=== PATIENT | female | born 1945 | race Caucasian/White ===

== ENCOUNTER 2017-08-12 10:28 | Outpatient (CLI) | payer OTHER ==
[~2017-08-12 10:28] MED LIST: AMOX1TAB12 PO; BACTROBAN OINT22 GM TP; GLIPIZIDE5 MG PO; GLUMETZA1000 MG PO; KETO10TA2 PO; ONGLYZA5 MG PO; SYNTHROID100 MCG PO; SYSTANE GEL EYE10 ML OP; ZOCOR20 MG PO
== END 2017-08-12 10:38 | disposition home or self-care (01) ==
LOC: NUCLEAR 10:28
DX: M81.0 Age-related osteoporosis without current pathological fracture (principal)

== ENCOUNTER 2018-07-15 11:56 | Outpatient (CLI) | payer OTHER | END 2018-07-15 12:08 | disposition home or self-care (01) | LOC: RAD 11:56 | DX: Z01.818 Encounter for other preprocedural examination (principal); H25.12 Age-related nuclear cataract, left eye ==

== ENCOUNTER 2020-08-15 12:44 | Outpatient (CLI) | payer OTHER | END 2020-08-15 12:56 | disposition home or self-care (01) | LOC: SONOGRAMA 12:44 → MAMO-SONO 13:15 | PROVIDERS: ATTEND Internal Medicine Nephrology | DX: N18.2 Chronic kidney disease, stage 2 (mild) (principal) ==